=== PATIENT | female | born 1995 | race Caucasian/White ===

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

== ENCOUNTER 2024-07-17 13:14 | Emergency (ER) | payer OTHER, SELFPAY | END 2024-07-17 14:30 | disposition home or self-care (01) | LOC: MADERS 13:14 | DX: M25.561 Pain in right knee (principal); I10 Essential (primary) hypertension | CPT/HCPCS: 99283 ==